=== PATIENT | female | born 1990 | race African-American/Black ===

== ENCOUNTER 2018-09-05 19:12 | Emergency (ER) | payer OTHER ==
[2018-09-05 19:43] VITALS: BP 105/72
--- NOTE | 2018-09-05 20:36 | UC ---
General HPI - HPI Summary HPI Summary: PATIENT ARRIVED HERE FROM [facility] IN [place]. SINCE THEN HAS HAD INTERMITTENT SUBJECTIVE FEVER (NO DOCUMENTED FEVER), CHILLS AND BODY ACHES. OVER THE PAST WEEK OR SO HER SYMPTOMS HAVE BECOME MORE FREQUENT AND OCCURRING ON MOST DAYS. SHE IS ALSO COMPLAINING OF A BITTER TASTE IN HER MOUTH AND OVERALL MALAISE. STATES THAT SHE OFTEN FEELS THIS WAY WHEN SHE IS GETTING MALARIA. WAS TESTED FOR MALARIA, LYME DISEASE AND DENGUE FEVER IN AND ALL WERE NEGATIVE. IS HERE REQUESTING REPEAT MALARIAL SCREENING. SHE DENIES URI SX. NO ST, N/V. NO RASH. HAS NOT TAKEN ANY ANTI FEVER MEDICATIONS. - History of Current Complaint Chief Complaint: UCGeneralIllness Stated Complaint: FEVER Time Seen by Provider: 09/05/18 19:35 Hx Obtained From: Patient Hx Last Menstrual Period: 08/12/2018 Onset/Duration: Gradual Onset, Lasting Weeks, Still Present Timing: Constant Onset Severity: Moderate Current Severity: Moderate Pain Intensity: 4 Associated Signs & Symptoms: Positive: Fever, Headache. Negative: Cough, Nausea , SOB, Vomiting, Weakness - Allergy/Home Medications Allergies/Adverse Reactions: Allergies Allergy/AdvReac Type Severity Reaction Status Date / Time No Known Allergies Allergy Verified 07/30/18 13:47 PMH/Surg Hx/FS Hx/Imm Hx Previously Healthy: Yes - Surgical History Surgical History: None - Family History Known Family History: Positive: Non-Contributory - Social History Alcohol Use: None Substance Use Type: None Smoking Status (MU): Never Smoked Tobacco Review of Systems All Other Systems Reviewed And Are Negative: Yes Constitutional: Positive: Fever, Chills, Fatigue ENT: Positive: Negative Respiratory: Positive: Negative Cardiovascular: Positive: Negative Gastrointestinal: Positive: Negative Musculoskeletal: Positive: Arthralgia, Myalgia Neurological: Positive: Headache Physical Exam Triage Information Reviewed: Yes Appearance: Well-Appearing, No Pain Distress, Well-Nourished Vital Signs: Initial Vital Signs Temp 98.6 F 09/05/18 19:39 Pulse 84 09/05/18 19:39 Resp 18 09/05/18 19:39 BP 105/72 09/05/18 19:39 Pulse Ox 100 09/05/18 19:39 Vital Signs Reviewed: Yes Eyes: Positive: Conjunctiva Clear ENT: Positive: Hearing grossly normal, Pharynx normal, TMs normal Neck: Positive: Supple, Nontender, No Lymphadenopathy Respiratory Exam: Normal Cardiovascular Exam: Normal Abdomen Description: Positive: Nontender, Soft. Negative: CVA Tenderness (R), CVA Tenderness (L), Distended, Guarding Musculoskeletal: Positive: ROM Intact, No Edema Neurological: Positive: Alert Psychological: Positive: Age Appropriate Behavior Skin: Negative: Rashes Course/Dx - Course Course Of Treatment: VITAL SIGNS ALL STABLE TODAY. NO DOCUMENTED FEVER. PHYSICAL EXAM NORMAL WELL. PATIENT IS CONCERNED SHE HAS SOME UNDERLYING CONDITION AND IS REQUESTING TESTING FOR MALARIA TODAY. WILL DO THIS ALONG WITH DRAWING CBC, CMP AND TSH. PATIENT WILL FOLLOW UP WITH [facility]. TO THE ED IF SYMPTOMS WORSEN. - Diagnoses Provider Diagnosis: Fever Discharge - Sign-Out/Discharge Documenting (check all that apply): Patient Departure All imaging exams completed and their final reports reviewed: No Studies - Discharge Plan Condition: Stable Disposition: HOME Patient Education Materials: Fever in Adults (ED) Referrals: [facility] [Outside] - If Needed Jeny Gutierrez [Primary Care Provider] - 2 Weeks Gerri PAYNE,Yoel Zaman [Medical Doctor] - If Needed Additional Instructions: UNCLEAR ETIOLOGY OF YOUR SYMPTOMS TODAY. BLOOD DRAWN FOR BLOOD COUNT, METABOLIC PANEL, THYROID AND MALARIA SCREEN. WE WILL CALL YOU WITH ANY ABNORMAL RESULTS. GO TO THE ED WITHOUT FAIL IF YOU DEVELOP WORSENING PAIN, WORSENING FEVER, NAUSEA , DIZZINESS, SHORTNESS OF BREATH, CHEST PAIN OR ANY OTHER CONCERNING SYMPTOMS. FOLLOW-UP WITH [facility]. GO TO [facility] SHOULD YOU REQUIRE EVALUATION BEFORE [facility] REOPENS AFTER THE HOLIDAYS. I WOULD ALSO CONSIDER FOLLOWING UP WITH DR. YOEL LARA WHO IS THE LOCAL INFECTIOUS DISEASE SPECIALIST. - Billing Disposition and Condition Condition: STABLE Disposition: Home
[2018-09-06 14:41] LABS: ABS Basophils 0 10^3/ul (0-0.2); ABS Eosinophils 0.1 10^3/ul (0-0.6); ABS Lymphocytes 2.1 10^3/ul (1.0-4.8); ABS Monocytes 0.4 10^3/ul (0-0.8); ABS Nucleated RBC 0 10^3/ul; Eosinophil % 2.3 %; Hematocrit 39 % (35-47); Hemoglobin 13.1 g/dl (12.0-16.0); Lymphocyte % 44.9 %; Mean Corpuscular HGB Conc 34 g/dl (31-36); Mean Corpuscular Hemoglobin 30 pg (27-31); Mean Corpuscular Volume 91 fL (80-97); Mean Platelet Volume 9.5 fL (7.4-10.4); Nucleated Red Blood Cells % 0.2; Platelet Count 193 10^3/ul (150-450); Red Cell Distribution Width 14 % (10.5-15); White Blood Count 4.7 10^3/ul (3.5-10.8)
[2018-09-06 14:43] LABS: Albumin 4.2 g/dL (3.2-5.2); Calcium 9.1 mg/dL (8.6-10.3); Potassium 3.8 mmol/L (3.5-5.0); Total Bilirubin 0.4 mg/dL (0.2-1.0)
[2018-09-06 14:49] LABS: Albumin/Globulin Ratio 1.6 (1-3); EGFR Non-African American 79.1 (>60); Globulin 2.7 g/dL (2-4); Total Protein 6.9 g/dL (6.4-8.9)
[2018-09-06 15:06] LABS: TSH (Thyroid Stimulating Horm) 0.84 mcIU/mL (0.34-5.60)
[2018-09-07 00:20] LABS: RBC Parasite Smear No Parasites Seen (No Parasite)
== END 2018-09-05 20:57 | disposition home or self-care (01) ==
LOC: UCEAST 19:12
DX: R50.9 Fever, unspecified (principal)
CPT/HCPCS: 36415; 80053; 84443; 85025; 87015; 87207; 99211; G0463

== ENCOUNTER 2018-10-03 06:20 | Day surgery (SDC) | payer OTHER ==
[~2018-10-03 06:20] MED LIST: Buffered Lidocaine 1% SYRIN* 1 ML/SYRINGE INTRADERM ONE; Lactated Ringers 1000 ML Bag* 1,000 ML IV SCH
[2018-10-03] MEDS ORDERED: Buffered Lidocaine 1% SYRIN* 1 ML/SYRINGE INTRADERM ONE (06:47)
[2018-10-03 07:13] LABS: ABS Basophils 0 10^3/ul (0-0.2); ABS Eosinophils 0.1 10^3/ul (0-0.6); ABS Lymphocytes 1.5 10^3/ul (1.0-4.8); ABS Monocytes 0.4 10^3/ul (0-0.8); ABS Neutrophils 1.3 10^3/ul (1.5-7.7); ABS Nucleated RBC 0 10^3/ul; Eosinophil % 2.5 %; Hematocrit 40 % (35-47); Hemoglobin 13.2 g/dl (12.0-16.0); Mean Corpuscular HGB Conc 33 g/dl (31-36); Mean Corpuscular Hemoglobin 30 pg (27-31); Mean Corpuscular Volume 91 fL (80-97); Mean Platelet Volume 9.1 fL (7.4-10.4); Nucleated Red Blood Cells % 0.2; Platelet Count 186 10^3/ul (150-450); Red Blood Count 4.37 10^6/ul (4.00-5.40); Red Cell Distribution Width 13 % (10.5-15); White Blood Count 3.3 10^3/ul (3.5-10.8)
[2018-10-03] MEDS ORDERED: Midazolam* 1 MG/ML 2 ML VIAL (2 MG) ONE (08:23)
[2018-10-03] MEDS ORDERED: fentaNYL* 50 MCG/ML 2 ML VIAL (100 MCG VIAL) ONE ×2 (08:23→10:03)
[2018-10-03] MEDS ORDERED: Lidocaine 2% PF * 5 ML VIAL ONE (08:24)
[2018-10-03] MEDS ORDERED: Propofol* 10 MG/ML 20 ML BTL ONE (08:24)
[2018-10-03] MEDS ORDERED: VASOPRESSIN 20 UNITS/ML 1 ML VIAL ONE (08:30)
[2018-10-03] MEDS ORDERED: Naloxone* 0.4 MG/ML 1 ML VIAL IV PRN (08:59)
[2018-10-03] MEDS ORDERED: Ondansetron INJ* 2 MG/ML VIAL IV PRN (08:59)
[2018-10-03] MEDS ORDERED: Ketorolac INJ* 30 MG/ML 1 ML VIAL ONE (09:59)
[2018-10-03] MEDS: fentaNYL* 50 MCG/ML 2 ML VIAL (100 MCG VIAL) IV PRN ×4 (10:03→10:59)
[2018-10-03] MEDS ORDERED: Ketorolac INJ* 30 MG/ML 1 ML VIAL IV PUSH ONE (10:05)
[2018-10-03] MEDS ORDERED: oxyCODONE/Acetamin 5/325 MG* TAB ONE (10:54)
[2018-10-03 13:13] VITALS: BP 100/64
--- NOTE | 2018-10-03 13:51 | OP ---
OPERATIVE NOTE: DATE OF OPERATION: 10/03/18 DATE OF : 88 SURGEON: Haily Hughes MD ANESTHESIA: General endotracheal. PRE-OP DIAGNOSES: Submucosal uterine fibroid, dysmenorrhea. POST-OP DIAGNOSES: Submucosal uterine fibroid, dysmenorrhea. OPERATIVE PROCEDURE: Dilation and curettage, hysteroscopy and myomectomy with MyoSure. ESTIMATED BLOOD LOSS: Minimal. SPECIMEN: Uterine fibroid, possible polyp. FLUIDS: Crystalloid. DRAINS: The bladder was drained prior to the procedure. FINDINGS: A moderate-sized submucosal fibroid in the left lower uterus, several other possible small fibroids versus polyps. DESCRIPTION OF PROCEDURE: After informed consent was signed, the patient was taken to the operating room where she was given general anesthesia that was found to be adequate. She was prepped and drape d in the dorsal lithotomy position with Baljit stirrups. Her bladder was drained of urine. A speculu m was then placed into the vagina to expose the cervix. The anterior lip of the cervix was grasped w ith a tenaculum and the cervix was dilated until the hysteroscope could be inserted. The MyoSure dev ice was then assembled. Fluid was turned on and the camera was inserted through the cervix to visual ize the uterine cavity. The base of the fibroid was injected with vasopressin approximately 3 cc. T he MyoSure XL was then inserted through the scope and used to slowly remove the fibroids until they w ere flushed with the endometrium. At the end of the procedure, the uterine cavity appeared normal. Both ostia were visualized and no obvious remaining fibroid or polyp was noted. The hysteroscope was removed. The tenaculum was removed from the cervix with good hemostasis and the speculum was remove d from the vagina. The patient was cleaned, placed back in the supine position, awakened from anesth esia and moved to the recovery room in stable condition. [id number]/[facility] #: [id number]
== END 2018-10-03 13:24 | disposition home or self-care (01) ==
LOC: OR 06:20
PROVIDERS: ATTEND Obstetrics & Gynecology
DX: D25.0 Submucous leiomyoma of uterus (principal); N92.0 Excessive and frequent menstruation with regular cycle; D64.9 Anemia, unspecified
CPT/HCPCS: 36415; 81025; 85025; 86850; 86900; 86901; 88305; A9270-GY; J1885; J2250; J2704; J3010

== ENCOUNTER 2018-11-26 21:03 | Emergency (ER) | payer OTHER ==
--- OUTSIDE RECORDS SUMMARY | 2018-11-26 21:07 | XMS REPORT | Continuity of Care Document ---
:1990 External Reference #:[id number] Author Name Jo Ann Razo Care Team Providers Name Role Phone Kirill Matthews MD Care Team Information Supervisor [employer] Unavailable Payers Date Identification Numbers Payment Provider Subscriber Policy Number: [id number] [facility] Claims Admin Lesley Stahl PayID: [id number] [address] [place] [address] Advance Directives Description No Information Available Problems Description No Information Family History Date Family Member(s) Observation Comments Father due to Liver Cancer () Mother A&W Siblings 2 First Brother Oldest of 3 children First Brother A&W First Sister A&W Paternal Grandfather due to Unknown Causes () Paternal Grandmother due to Unknown Causes () Maternal Grandfather due to Unknown Causes () Maternal Grandmother due to Old Age () Social History Type Date Description Comments Sex Unknown Marital Status Single Lives With Roommate Occupation Student Tobacco Use Start: Unknown Never Smoked Cigarettes ETOH Use Denies alcohol use Recreational Drug Use Denies Drug Use Tobacco Use Start: Unknown Patient has never smoked Smoking Status Reviewed: 10/31/18 Patient has never smoked Exercise Type/Frequency Exercises regularly 5x per week Seat Belt/Car Seat Always uses seat belt Currently Active Patient is currently not sexually active Contraceptive Methods None STD's No STD History Allergies, Adverse Reactions, Alerts Description No Known Drug Allergies Medications Medication Date Status Form Strength Qnty SIG Indications Ordering Provider Vitamin B-12 Active Unknown 000 Folic Acid Active Capsules Unknown 000 Iron Active Unknown Supplement 000 Omeprazole Active Unknown 000 Oxycodone-Acet Hx Tablets 5-325mg 10tabs take 1 N94.5 Baclawski , aminophen 018 - tab by MD Haily mouth 019 q6hrs as needed pain Medications Administered in Office Medication Date Status Form Strength Qnty SIG Indications Ordering Provider PT SCRN Tbco Administered Injection Ellen, Id as Non User 019 MD Haily PT SCRN Tbco Administered Injection Ellen, Id as Non User 018 MD Haily Immunizations Description No Information Available Vital Signs Date Vital Result Comment 10/31/2018 11:35am BP Systolic 120 mmHg BP Diastolic 68 mmHg Height 68.5 inches 5'8.50" Weight 150.00 lb BMI (Body Mass Index) 22.5 kg/m2 Last Menstrual Period [id number] 0 Parity 0 09/29/2018 2:04pm BP Systolic 114 mmHg BP Diastolic 60 mmHg Height 68.5 inches 5'8.50" Weight 152.00 lb BMI (Body Mass Index) 22.8 kg/m2 Last Menstrual Period [id number] 0 Parity 0 08/04/2018 9:54am BP Systolic 100 mmHg BP Diastolic 56 mmHg Height 68.5 inches 5'8.50" Weight 144.00 lb BMI (Body Mass Index) 21.6 kg/m2 Last Menstrual Period [id number] 0 Parity 0 Results Test Date Facility Test Result H/L Range Note Laboratory test 10/03/2018 [facility] Surgical SEE RESULT [address] [place] [address] Pathology BELOW [phone] CBC Auto Diff 10/03/2018 [facility] White Blood 3.3 10^3/uL Low 3.5-10.8 [place] [address] Count [phone] Red Blood Count 4.37 10^6/uL N 4.00-5.40 Hemoglobin 13.2 g/dL N 12.0-16.0 Hematocrit 40 % N 35-47 Mean Corpuscular Volume 91 fL N 80-97 Mean Corpuscular Hemoglobin 30 pg N 27-31 Mean Corpuscular HGB Conc 33 g/dL N 31-36 Red Cell Distribution Width 13 % N 10.5-15 Platelet Count 186 10^3/uL N 150-450 Mean Platelet Volume 9.1 fL N 7.4-10.4 Abs Neutrophils 1.3 10^3/uL Low 1.5-7.7 Abs Lymphocytes 1.5 10^3/uL N 1.0-4.8 Abs Monocytes 0.4 10^3/uL N 0-0.8 Abs Eosinophils 0.1 10^3/uL N 0-0.6 Abs Basophils 0 10^3/uL N 0-0.2 Abs Nucleated RBC 0 10^3/uL Granulocyte % 38.9 % Lymphocyte % 45.0 % Monocyte % 12.3 % Eosinophil % 2.5 % Basophil % 1.3 % Nucleated Red Blood Cells % 0.2 Type And Screen 10/03/2018 [facility] Patient [place] [address] [phone] Antibody Screen NEGATIVE 1 SEE RESULT BELOW Name: LESLEY STAHL CECIL : [address]: Haily Hughes MD Acct: [id number] Unit: [id number] AGE: 28 Location: OR Re10/03/18 SEX: F Status: STEPHEN RATLIFF SPEC: [id number] NILSON: 10/03/[address] [facility] [address]: Haily Hughes MD REQ: [id number] RECD: 10/03/188 STATUS: SOUT _ ORDERED: LEVEL 4 FINAL DIAGNOSIS Uterus, endometrium, curettage: -- Numerous fragments of cellular smooth muscle compatible with leiomyoma. -- Late secretory endometrium. -- No evidence of hyperplasia or neoplasia identified. PRE-OPERATIVE DIAGNOSIS Leiomyoma of uterus. GROSS DESCRIPTION The specimen is received in formalin labeled, Fibroids, and consists of a 7.5 x 6.5 x 1.5 cm aggregate of adkins-pink irregular rubbery soft tissue fragments admixed with scant red-brown blood clot. [employer] Team Member sections, four cassettes. Signed by and Reported on: Stalin Bourgeois MD [address] END OF REPORT DEPARTMENT OF PATHOLOGY, [address] [place] [address] Stalin Bourgeois M.D. Director [facility] # [id number] Procedures Date Code Description Status 10/03/2018 01765 Hysteroscopy W/Removal Leiomyomta Completed 09/29/2018 72970 Echography Transvaginal Completed Encounters Type Date Location Provider Dx Diagnosis Office Visit 09/29/2018 [facility] Haily Hughes MD D25.0 Submucous leiomyoma 2:30p of uterus Office Visit 08/04/2018 [facility] Office Haily Hughes MD D25.2 Subserosal leiomyoma 10:00a of uterus D25.1 Intramural leiomyoma of uterus D25.0 Submucous leiomyoma of uterus N92.0 Excessive and frequent menstruation with regular cycle N94.5 Secondary dysmenorrhea Plan of Treatment 09/29/2018 - Haily Hughes, MDD25.0 Submucous leiomyoma of uterusComments: Will schedule for D&C hysteroscopy and myomectomy with myosure on 10/03/18. Reviewed the procedure, risks and recovery. Questions answered and consents signed.
[2018-11-26 21:19] VITALS: BP 99/70
--- NOTE | 2018-11-26 23:36 | UC ---
Respiratory Complaint HPI - HPI Summary HPI Summary: 5-6 days of cough, congestion, decreased appetite, headache and body aches. States she had fever initially but none for the past few days. Had flu shot in May 2018. - History of Current Complaint Chief Complaint: UCRespiratory Stated Complaint: COUGH Time Seen by Provider: 11/26/18 21:50 Hx Obtained From: Patient Hx Last Menstrual Period: 08/12/2018 Onset/Duration: Gradual Onset, Lasting Days, Still Present Timing: Constant Severity Initially: Moderate Severity Currently: Moderate Pain Intensity: 0 Pain Scale Used: 0-10 Numeric Character: Cough: Nonproductive Aggravating Factors: Nothing Alleviating Factors: Nothing Associated Signs And Symptoms: Positive: Fever, URI, Nasal Congestion. Negative : Dyspnea, Wheezing - Allergies/Home Medications Allergies/Adverse Reactions: Allergies Allergy/AdvReac Type Severity Reaction Status Date / Time No Known Allergies Allergy Verified 11/26/18 21:19 PMH/Surg Hx/FS Hx/Imm Hx Previously Healthy: Yes - Surgical History Surgical History: Yes Surgery Procedure, Year, and Place: [place]- seismometer [place] [facility] [place] Family History Known Family History: Positive: Non-Contributory - Social History Alcohol Use: Rare Substance Use Type: None Smoking Status (MU): Never Smoked Tobacco Review of Systems All Other Systems Reviewed And Are Negative: Yes Constitutional: Positive: Fever, Fatigue ENT: Positive: Ear Ache, Nasal Discharge Respiratory: Positive: Cough Cardiovascular: Positive: Negative Gastrointestinal: Positive: Nausea Musculoskeletal: Positive: Myalgia Neurological: Positive: Headache Physical Exam Triage Information Reviewed: Yes Appearance: Well-Appearing, No Pain Distress, Well-Nourished Vital Signs: Initial Vital Signs Temp 99.3 F 11/26/18 21:13 Pulse 135 11/26/18 21:13 Resp 18 11/26/18 21:13 BP 99/70 11/26/18 21:13 Pulse Ox 100 11/26/18 21:13 Vital Signs Reviewed: Yes Eyes: Positive: Conjunctiva Clear ENT: Positive: Hearing grossly normal, Pharynx normal, TMs normal Neck: Positive: Supple, Nontender, No Lymphadenopathy Respiratory Exam: Normal Cardiovascular Exam: Normal Abdomen Description: Positive: Soft Musculoskeletal: Positive: No Edema Neurological: Positive: Alert Psychological: Positive: Age Appropriate Behavior Skin: Negative: Rashes Respiratory Course/Dx - Course Course Of Treatment: PATIENT'S SYMPTOMS SEEM FLULIKE HOWEVER SHE IS OUTSIDE THE WINDOW FOR TREATMENT WITH TAMIFLU. CONSERVATIVE MANAGEMENT. FOLLOW-UP IF NOT IMPROVING EXPECTED OVER THE NEXT WEEK OR 2. - Differential Dx/Diagnosis Provider Diagnosis: Acute viral syndrome Discharge - Sign-Out/Discharge Documenting (check all that apply): Patient Departure All imaging exams completed and their final reports reviewed: No Studies - Discharge Plan Condition: Stable Disposition: HOME Patient Education Materials: Viral Syndrome (ED) Referrals: Jeny Gutierrez [Primary Care Provider] - If Needed Additional Instructions: YOUR SYMPTOMS SOUND FLU-LIKE. THEY ARE LIKELY VIRALLY MEDIATED AND SHOULD RESOLVE ON THEIR OWN WITH TIME. NO INDICATION FOR ANTIBIOTICS AT PRESENT. YOU ARE OUTSIDE THE WINDOW FOR TAMIFLU. REST, HYDRATE, OTC MEDS NEEDED. SEEK FOLLOW-UP IF YOU ARE NOT IMPROVING OVER THE NEXT 1-2 WEEKS. USE OTC AFRIN FOR NASAL CONGESTION. 2 SPRAYS IN EACH NOSTRIL TWICE DAILY NEEDED. DO NOT USE FOR MORE THAN 3-4 DAYS IN A ROW TO PREVENT DEVELOPING REBOUND CONGESTION. - Billing Disposition and Condition Condition: STABLE Disposition: Home
== END 2018-11-26 22:40 | disposition home or self-care (01) ==
LOC: UCEAST 21:03
DX: B34.9 Viral infection, unspecified (principal); R05 Cough; R09.81 Nasal congestion; R51 Headache; R63.0 Anorexia
CPT/HCPCS: 99211; G0463

== ENCOUNTER 2020-10-05 10:41 | Inpatient (IN) ==
[2020-10-05 11:36] LABS: ABS Lymphocytes 0.7 10^3/ul (1.0-4.8); ABS Monocytes 0.5 10^3/ul (0-0.8); ABS Neutrophils 4.6 10^3/ul (1.5-7.7); Eosinophil % 0.1 %; Hematocrit 41 % (35-47); Hemoglobin 14.1 g/dL (12.0-16.0); Lymphocyte % 11.5 %; Mean Corpuscular HGB Conc 34 g/dL (31-36); Mean Corpuscular Hemoglobin 32 pg (27-31); Mean Corpuscular Volume 95 fL (80-97); Mean Platelet Volume 8.4 fL (7.4-10.4); Nucleated Red Blood Cells % 0.1; Platelet Count 214 10^3/uL (150-450); Red Blood Count 4.36 10^6 /uL (3.70-4.87); Red Cell Distribution Width 14 % (10-15); White Blood Count 5.8 10^3/uL (3.5-10.8)
[2020-10-05 12:17] LABS: Acetaminophen < 15 mcg/mL; Alcohol, S < 10 mg/dL (<10); Salicylate < 2.50 mg/dL (<30)
[2020-10-05 12:19] LABS: ALT 5 U/L (7-52); AST 17 U/L (13-39); Albumin 4.6 g/dL (3.2-5.2); Albumin/Globulin Ratio 1.3 (1-3); Alkaline Phosphatase 76 U/L (34-104); Anion Gap 9 mmol/L (2-11); BUN/Creatinine Ratio 11.7 (8-20); Blood Urea Nitrogen 7 mg/dL (6-24); CO2 Carbon Dioxide 22 mmol/L (22-32); Calcium 9.6 mg/dL (8.6-10.3); Chloride 108 mmol/L (101-111); EGFR African American 141.1 (>60); EGFR Non-African American 116.6 (>60); Globulin 3.5 g/dL (2-4); Glucose 113 mg/dL (70-100); Potassium 3.8 mmol/L (3.5-5.0); Sodium 139 mmol/L (135-145); Total Protein 8.1 g/dL (6.4-8.9)
[2020-10-05 12:25] LABS: HCG Pregnancy < 0.60 mIU/mL
[2020-10-05 12:28] LABS: TSH Ultra Thyroid Stim Horm 1.66 mcIU/mL (0.34-5.60)
[2020-10-05] MEDS ORDERED: Al Hydrox/Mg Hydrox/Simet LIQ 30 ML UDC PO PRN (13:23)
[2020-10-05] MEDS ORDERED: Lorazepam PYXIS KEY PRN ×2 (15:43→17:08)
[2020-10-05] MEDS ORDERED: LORazepam 2 mg VIAL 1 ml IM ONE (15:45)
[2020-10-05] MEDS: LORazepam 2 mg VIAL 1 ml IM PRN (20:41)
[2020-10-05] MEDS: Vitamin THERAPEUTIC TAB PO SCH (20:59)
[2020-10-06] MEDS: LORazepam 2 mg VIAL 1 ml IM PRN ×2 (00:46→04:45)
[2020-10-06] MEDS: Vitamin THERAPEUTIC TAB PO SCH (10:27)
[2020-10-07] MEDS: Vitamin THERAPEUTIC TAB PO SCH (09:44)
[2020-10-08] MEDS: Vitamin THERAPEUTIC TAB PO SCH (07:58)
[2020-10-09] MEDS: Vitamin THERAPEUTIC TAB PO SCH (09:05)
[2020-10-09] MEDS ORDERED: OLANzapine 5 mg TAB*ODT PO PRN (11:02)
[2020-10-10] MEDS: Vitamin THERAPEUTIC TAB PO SCH (08:21)
[2020-10-10] MEDS ORDERED: risperiDONE-M 1 mg Oradis TAB PO PRN (09:57)
[2020-10-11] MEDS: Vitamin THERAPEUTIC TAB PO SCH (09:20)
[2020-10-12] MEDS: Vitamin THERAPEUTIC TAB PO SCH (09:42)
[2020-10-12] MEDS: risperiDONE-M 1 mg Oradis TAB PO SCH (21:11)
[2020-10-13] MEDS: Vitamin THERAPEUTIC TAB PO SCH (10:36)
[2020-10-13] MEDS: risperiDONE-M 1 mg Oradis TAB PO SCH ×2 (10:36→21:01)
[2020-10-14] MEDS: risperiDONE-M 1 mg Oradis TAB PO SCH (09:17)
[2020-10-14] MEDS: Vitamin THERAPEUTIC TAB PO SCH (09:18)
[2020-10-14] MEDS ORDERED: Paliperidone SUSTENNA 234 MG/1.5 ML IM ONE (15:30)
[2020-10-15] MEDS: Vitamin THERAPEUTIC TAB PO SCH (09:53)
[2020-10-16] MEDS: Vitamin THERAPEUTIC TAB PO SCH (07:55)
[2020-10-17] MEDS: Vitamin THERAPEUTIC TAB PO SCH (11:41)
[2020-10-17] MEDS ORDERED: Paliperidone SUSTENNA 117 MG/0.75 ML IM ONE (15:30)
[2020-10-18] MEDS: Vitamin THERAPEUTIC TAB PO SCH (10:23)
[2020-10-18] MEDS ORDERED: Paliperidone SUSTENNA 156 MG/1 ML IM ONE (10:27)
[2020-10-19] MEDS: Vitamin THERAPEUTIC TAB PO SCH ×2 (11:47→12:06)
[2020-10-20] MEDS ORDERED: LORazepam 2 mg VIAL 1 ml ONE (08:04)
[2020-10-20] MEDS ORDERED: LORazepam 2 mg VIAL 1 ml IM ONE ×2 (08:37→16:27)
[2020-10-20] MEDS ORDERED: Lorazepam PYXIS KEY PRN (08:37)
[2020-10-20] MEDS: Vitamin THERAPEUTIC TAB PO SCH (11:12)
[2020-10-20] MEDS ORDERED: LORazepam 2 mg VIAL 1 ml IM PRN (15:10)
[2020-10-20 15:54] LABS: ABS Basophils 0.1 10^3/ul (0-0.2); ABS Lymphocytes 1.4 10^3/ul (1.0-4.8); ABS Monocytes 0.9 10^3/ul (0-0.8); ABS Neutrophils 7.6 10^3/ul (1.5-7.7); Eosinophil % 0.2 %; Hematocrit 39 % (35-47); Hemoglobin 13.2 g/dL (12.0-16.0); Lymphocyte % 13.7 %; Mean Corpuscular HGB Conc 34 g/dL (31-36); Mean Corpuscular Hemoglobin 32 pg (27-31); Mean Corpuscular Volume 95 fL (80-97); Mean Platelet Volume 7.9 fL (7.4-10.4); Platelet Count 263 10^3/uL (150-450); Red Blood Count 4.13 10^6 /uL (3.70-4.87); Red Cell Distribution Width 14 % (10-15); White Blood Count 9.9 10^3/uL (3.5-10.8)
[2020-10-20 16:37] LABS: Albumin 4.8 g/dL (3.2-5.2); Albumin/Globulin Ratio 1.4 (1-3); BUN/Creatinine Ratio 21.2 (8-20); EGFR African American 166.4 (>60); EGFR Non-African American 137.5 (>60); Globulin 3.4 g/dL (2-4); Potassium 3.7 mmol/L (3.5-5.0); Total Bilirubin 0.5 mg/dL (0.2-1.0); Total Protein 8.2 g/dL (6.4-8.9)
[2020-10-21] MEDS: Vitamin THERAPEUTIC TAB PO SCH (08:31)
[2020-10-22] MEDS: Vitamin THERAPEUTIC TAB PO SCH (08:38)
[2020-10-23] MEDS: Vitamin THERAPEUTIC TAB PO SCH (07:22)
[2020-10-24] MEDS: Vitamin THERAPEUTIC TAB PO SCH (09:09)
[2020-10-25] MEDS: Vitamin THERAPEUTIC TAB PO SCH (11:40)
[2020-10-26] MEDS: Vitamin THERAPEUTIC TAB PO SCH (09:09)
[2020-10-27] MEDS: Vitamin THERAPEUTIC TAB PO SCH (09:51)
[2020-10-28 09:53] VITALS: BP 116/77
[2020-10-28] MEDS: Vitamin THERAPEUTIC TAB PO SCH (10:08)
== END 2020-10-28 13:20 | DRG 885 ==
LOC: ED 10:41 → BSU 13:23 → ED 14:31 → BSU 10-09 05:52
PROVIDERS: ADMIT Psychiatry & Neurology Psychiatry; ATTEND Psychiatry & Neurology Psychiatry